=== PATIENT | male | born 1960 | race African-American/Black ===

== ENCOUNTER 2020-04-17 07:15 | Observation (INO) ==
[2020-04-17 08:17] LABS: Basophils % 0.4 % (0.0-0.8); Eosinophils # 0.1 10*3/uL (0.0-0.87); Eosinophils % 1.1 % (0.00-10.9); Hemoglobin 11.6 GM/DL (14.0-18.0); Immature Granulocytes % 0.2 %; Immature Granulocytes Absolute 0.01 #; Lymphocytes # 1.8 10*3/uL (1.4-4.0); Lymphocytes % 38.1 % (21.2-54.2); Mean Corpuscular HGB Conc 30.5 GM/DL (32-36); Mean Corpuscular Volume 96.7 FL (87-102); Mean Platelet Volume 10.5 FL (9.6-12.0); Monocytes % 14.5 % (1.7-12.7); Neutrophils % 45.7 % (38.7-73.9); Platelet Count 202 T/CUMM (130-400); Red Blood Count 3.93 MC/CUMM (3.8-5.5); Red Cell Distribution Width 16.3 % (9.3-17.3); White Blood Count 4.6 T/CUMM (4-12)
[2020-04-17 08:40] LABS: Alanine Aminotransferase 17 U/L (16-61); Albumin 3.1 G/DL (3.4-5.0); Alkaline Phosphatase 51 U/L (45-117); Aspartate Amino Transferase 20 U/L (0-37); Bilirubin,Total < 0.39 MG/DL (0.2-1.0); Blood Urea Nitrogen 28 MG/DL (7-18); Calcium 10.2 MG/DL (8.5-10.1); Carbon Dioxide 33 MMOL/L (21-32); Estimated Glom Filtration Rate 10 ML/MIN; Glucose 109 MG/DL (74-106); Osmolality,Calculated 281.7 MOS/KG (273-304); Potassium 4.2 MMOL/L (3.5-5.1); Sodium 138 MMOL/L (136-145); Total Protein 6.5 G/DL (6.4-8.3)
[2020-04-17 12:03] LABS: INR 1.2; PT Patient Result 12.4 SECS (9.8-11.9); Partial Thromboplastin Time 28.7 SECS (23.9-33.8)
[2020-04-17] MEDS ORDERED: ACETAMINOPHEN 325 MG TABLET PO PRN (14:53)
[2020-04-17] MEDS ORDERED: ONDANSETRON 4 MG/2 ML VIAL IV PRN (14:53)
[2020-04-17] MEDS ORDERED: DEXTROSE 50% 25 GM/50 ML VIAL IV PRN (14:53)
[2020-04-17] MEDS ORDERED: GLUCAGON 1 MG VIAL IM PRN (14:53)
[2020-04-17] MEDS: INSULIN LISPRO 100 UNIT/ML SUBCUT SCH ×2 (17:27→22:30)
[2020-04-17] MEDS ORDERED: NITROGLYCERIN SL 0.4 MG TABLET SL PRN (18:53)
[2020-04-17] MEDS ORDERED: hydrALAZINE 20 MG/1 ML VIAL IV ONE (18:55)
[2020-04-17] MEDS: DOCUSATE SODIUM 100 MG CAPSULE PO SCH (21:25)
[2020-04-17] MEDS: METOPROLOL TARTRATE 25 MG TABLET PO SCH (21:27)
[2020-04-17] MEDS: ROSUVASTATIN 10 MG TABLET PO SCH (21:27)
[2020-04-17] MEDS: SACUBITRIL/VALSARTAN 49-51 MG TABLET PO SCH (22:37)
[2020-04-18 06:43] LABS: Basophils % 0.4 % (0.0-0.8); Eosinophils # 0.1 10*3/uL (0.0-0.87); Eosinophils % 1.5 % (0.00-10.9); Hematocrit 37.5 VOL% (42.0-52.0); Hemoglobin 11.9 GM/DL (14.0-18.0); Immature Granulocytes % 0.2 %; Immature Granulocytes Absolute 0.01 #; Lymphocytes # 1.7 10*3/uL (1.4-4.0); Lymphocytes % 36.5 % (21.2-54.2); Mean Corpuscular HGB Conc 31.7 GM/DL (32-36); Mean Corpuscular Volume 93.8 FL (87-102); Mean Platelet Volume 10.8 FL (9.6-12.0); Monocytes % 11.6 % (1.7-12.7); Neutrophils % 49.8 % (38.7-73.9); Platelet Count 173 T/CUMM (130-400); Red Cell Distribution Width 16.1 % (9.3-17.3); White Blood Count 4.6 T/CUMM (4-12)
[2020-04-18] MEDS: LEVOTHYROXINE 125 MCG TABLET PO SCH (06:58)
[2020-04-18 07:03] LABS: Albumin 3.1 G/DL (3.4-5.0); Bilirubin,Total 1.2 MG/DL (0.2-1.0); Calcium 9.4 MG/DL (8.5-10.1); Potassium 3.9 MMOL/L (3.5-5.1); Risk Ratio 4.1; Thyroid Stimulating Hormone 1.76 uIU/ml (0.358-3.74); Total Protein 6.4 G/DL (6.4-8.3); VLDL CHOLESTEROL 24.2 MG/DL
[2020-04-18 08:08] LABS: Hepatitis B Core IgM Quant 0.12 Index; Hepatitis B Surface Ag Quant < 0.10 Index; Hepatitis B Surface Ag Result Non-Reactive (NonReactive); Hepatitis C Virus Ab Quant 0.07 Index; Hepatitis C Virus Ab Result Non-Reactive (NonReactive)
[2020-04-18] MEDS ORDERED: LIDOCAINE/PRILOCAINE CREAM 5 GM TUBE TOP SCH (09:00)
[2020-04-18] MEDS: INSULIN LISPRO 100 UNIT/ML SUBCUT SCH ×4 (09:22→22:11)
[2020-04-18] MEDS: SACUBITRIL/VALSARTAN 49-51 MG TABLET PO SCH ×2 (09:45→21:11)
[2020-04-18] MEDS: PANTOPRAZOLE 40 MG TABLET PO SCH (09:45)
[2020-04-18] MEDS: ASPIRIN CHEW 81 MG TABLET PO SCH (09:45)
[2020-04-18] MEDS: FENOFIBRATE 160 MG TABLET PO SCH (09:46)
[2020-04-18] MEDS: amLODIPine 5 MG TABLET PO SCH (09:47)
[2020-04-18] MEDS: CALCIUM ACETATE 667 MG CAPSULE PO SCH ×3 (09:47→17:31)
[2020-04-18] MEDS: DOCUSATE SODIUM 100 MG CAPSULE PO SCH ×2 (10:04→21:11)
[2020-04-18] MEDS: METOPROLOL TARTRATE 25 MG TABLET PO SCH ×2 (10:11→21:12)
[2020-04-18] MEDS: ROSUVASTATIN 10 MG TABLET PO SCH (21:12)
[2020-04-19] MEDS: LEVOTHYROXINE 125 MCG TABLET PO SCH (06:00)
[2020-04-19 07:16] LABS: Basophils % 0.5 % (0.0-0.8); Eosinophils # 0.1 10*3/uL (0.0-0.87); Eosinophils % 2.3 % (0.00-10.9); Hematocrit 37.4 VOL% (42.0-52.0); Immature Granulocytes % 0.5 %; Immature Granulocytes Absolute 0.02 #; Lymphocytes # 1.9 10*3/uL (1.4-4.0); Lymphocytes % 43.9 % (21.2-54.2); Mean Corpuscular HGB Conc 32.1 GM/DL (32-36); Mean Corpuscular Volume 93.5 FL (87-102); Mean Platelet Volume 10.7 FL (9.6-12.0); Monocytes % 14.9 % (1.7-12.7); Neutrophils % 37.9 % (38.7-73.9); Platelet Count 152 T/CUMM (130-400); Red Cell Distribution Width 16.1 % (9.3-17.3); White Blood Count 4.4 T/CUMM (4-12)
[2020-04-19 07:41] LABS: Calcium 8.5 MG/DL (8.5-10.1); Osmolality,Calculated 280.8 MOS/KG (273-304); Thyroid Stimulating Hormone 1.57 uIU/ml (0.358-3.74)
[2020-04-19] MEDS: METOPROLOL TARTRATE 25 MG TABLET PO SCH (09:25)
[2020-04-19] MEDS: CALCIUM ACETATE 667 MG CAPSULE PO SCH (09:25)
[2020-04-19] MEDS: DOCUSATE SODIUM 100 MG CAPSULE PO SCH (09:26)
[2020-04-19] MEDS: FENOFIBRATE 160 MG TABLET PO SCH (09:26)
[2020-04-19] MEDS: SACUBITRIL/VALSARTAN 49-51 MG TABLET PO SCH (09:26)
[2020-04-19] MEDS: INSULIN LISPRO 100 UNIT/ML SUBCUT SCH (09:26)
[2020-04-19] MEDS: amLODIPine 5 MG TABLET PO SCH (09:26)
[2020-04-19] MEDS: PANTOPRAZOLE 40 MG TABLET PO SCH (09:26)
[2020-04-19] MEDS: ASPIRIN CHEW 81 MG TABLET PO SCH (09:26)
[2020-04-19 10:12] LABS: Band Neutrophils 4 % (0-10); Eosinophils 2 % (0-10); Lymphocytes 43 % (20-55); Segmented Neutrophils 38 % (50-85); Total Cells Counted 100
[2020-04-19 10:13] LABS: Hypochromasia 2+; Platelet Estimate Normal
[2020-04-19 11:42] VITALS: BP 136/81
== END 2020-04-19 11:29 | disposition home or self-care (01) ==
LOC: N.EDINP 07:15 → N.ED 07:15 → N.TELEN 13:58
PROVIDERS: ADMIT Family Medicine; ATTEND Family Medicine

== ENCOUNTER 2021-01-27 08:25 | Observation (INO) ==
[2021-01-27 14:56] LABS: Basophils # 0.1 10*3/uL (0.0-0.2); Basophils % 0.9 % (0.0-0.8); Eosinophils # 0.1 10*3/uL (0.0-0.87); Eosinophils % 1.2 % (0.00-10.9); Hemoglobin 11.3 GM/DL (14.0-18.0); Immature Granulocytes % 0.7 %; Immature Granulocytes Absolute 0.04 #; Lymphocytes % 34.5 % (21.2-54.2); Mean Corpuscular HGB Conc 31.4 GM/DL (32-36); Mean Corpuscular Volume 84.5 FL (87-102); Mean Platelet Volume 10.7 FL (9.6-12.0); Monocytes % 11.6 % (1.7-12.7); NRBC # 0.02 10*3/uL; Neutrophils % 51.1 % (38.7-73.9); Platelet Count 237 T/CUMM (130-400); Red Blood Count 4.26 MC/CUMM (3.8-5.5); Red Cell Distribution Width 15.8 % (9.3-17.3); White Blood Count 5.8 T/CUMM (4-12)
[2021-01-27] MEDS ORDERED: SODIUM CHLORIDE 0.9% 1,000 ML IV SCH (15:00)
[2021-01-27 15:26] LABS: Alanine Aminotransferase 20 U/L (16-61); Albumin 3.9 G/DL (3.4-5.0); Alkaline Phosphatase 48 U/L (45-117); Aspartate Amino Transferase 23 U/L (0-37); Bilirubin,Total < 0.39 MG/DL (0.20-1.00); Blood Urea Nitrogen 69 MG/DL (7-18); Calcium 9.4 MG/DL (8.5-10.1); Carbon Dioxide 27 MMOL/L (21-32); Estimated Glom Filtration Rate 6 ML/MIN; Glucose 92 MG/DL (74-106); Osmolality,Calculated 289.1 MOS/KG (273-304); Potassium 4.9 MMOL/L (3.5-5.1); Sodium 135 MMOL/L (136-145); Total Protein 8.3 G/DL (6.4-8.2)
[2021-01-27] MEDS ORDERED: ACETAMINOPHEN 325 MG TABLET PO PRN (23:54)
[2021-01-27] MEDS ORDERED: DEXTROSE 50% 25 GM/50 ML SYRINGE IV PRN (23:54)
[2021-01-27] MEDS ORDERED: ONDANSETRON 4 MG/2 ML VIAL IV PRN (23:54)
[2021-01-27] MEDS ORDERED: GLUCAGON 1 MG VIAL IM PRN (23:54)
[2021-01-28] MEDS: DOCUSATE SODIUM 100 MG CAPSULE PO SCH ×3 (00:42→20:31)
[2021-01-28] MEDS: INSULIN LISPRO 100 UNIT/ML SUBCUT SCH ×5 (00:42→20:30)
[2021-01-28] MEDS ORDERED: NITROGLYCERIN SL 0.4 MG TABLET SL PRN (08:32)
[2021-01-28] MEDS: ROSUVASTATIN 10 MG TABLET PO SCH (10:03)
[2021-01-28] MEDS: SACUBITRIL/VALSARTAN 49-51 MG TABLET PO SCH ×2 (10:03→20:31)
[2021-01-28] MEDS: CALCIUM ACETATE 667 MG CAPSULE PO SCH ×2 (10:03→18:00)
[2021-01-28] MEDS: METOPROLOL SUCCINATE XL 100 MG TABLET PO SCH ×2 (10:03→20:31)
[2021-01-28] MEDS: PANTOPRAZOLE 40 MG TABLET PO SCH (10:03)
[2021-01-28] MEDS: amLODIPine 10 MG TABLET PO SCH (10:03)
[2021-01-28] MEDS: ASPIRIN EC 81 MG TABLET PO SCH (10:03)
[2021-01-28] MEDS: FENOFIBRATE 160 MG TABLET PO SCH (10:08)
[2021-01-29] MEDS: LEVOTHYROXINE 125 MCG TABLET PO SCH (05:31)
[2021-01-29 05:44] LABS: Basophils % 0.6 % (0.0-0.8); Eosinophils # 0.1 10*3/uL (0.0-0.87); Eosinophils % 2.3 % (0.00-10.9); Hemoglobin 10.9 GM/DL (14.0-18.0); Immature Granulocytes % 0.6 %; Immature Granulocytes Absolute 0.03 #; Lymphocytes # 1.7 10*3/uL (1.4-4.0); Lymphocytes % 33.7 % (21.2-54.2); Mean Corpuscular HGB Conc 32.1 GM/DL (32-36); Mean Corpuscular Volume 85.2 FL (87-102); Mean Platelet Volume 10.6 FL (9.6-12.0); Monocytes % 16.5 % (1.7-12.7); Neutrophils % 46.3 % (38.7-73.9); Platelet Count 227 T/CUMM (130-400); Red Blood Count 3.99 MC/CUMM (3.8-5.5); Red Cell Distribution Width 15.5 % (9.3-17.3); White Blood Count 5.2 T/CUMM (4-12)
[2021-01-29 06:06] LABS: Alanine Aminotransferase 12 U/L (16-61); Albumin 2.9 G/DL (3.4-5.0); Alkaline Phosphatase 55 U/L (45-117); Aspartate Amino Transferase 16 U/L (0-37); Bilirubin,Total < 0.39 MG/DL (0.20-1.00); Blood Urea Nitrogen 45 MG/DL (7-18); Calcium 8.3 MG/DL (8.5-10.1); Carbon Dioxide 21 MMOL/L (21-32); Estimated Glom Filtration Rate 9 ML/MIN; Glucose 104 MG/DL (74-106); Osmolality,Calculated 279.2 MOS/KG (273-304); Potassium 4.2 MMOL/L (3.5-5.1); Sodium 134 MMOL/L (136-145); Total Protein 6.5 G/DL (6.4-8.2)
[2021-01-29 06:11] LABS: Eosinophils 1 % (0-10); Hypochromasia Slight; Lymphocytes 39 % (20-55); Microcytosis Slight; Platelet Estimate Adequate; Segmented Neutrophils 48 % (50-85); Total Cells Counted 100
[2021-01-29] MEDS: INSULIN LISPRO 100 UNIT/ML SUBCUT SCH ×4 (09:17→21:39)
[2021-01-29] MEDS: DOCUSATE SODIUM 100 MG CAPSULE PO SCH ×2 (10:28→21:38)
[2021-01-29] MEDS: ROSUVASTATIN 10 MG TABLET PO SCH (10:28)
[2021-01-29] MEDS: PANTOPRAZOLE 40 MG TABLET PO SCH (10:29)
[2021-01-29] MEDS: ASPIRIN EC 81 MG TABLET PO SCH (10:29)
[2021-01-29] MEDS: amLODIPine 10 MG TABLET PO SCH (10:30)
[2021-01-29] MEDS: METOPROLOL SUCCINATE XL 100 MG TABLET PO SCH ×2 (10:30→21:38)
[2021-01-29] MEDS: SACUBITRIL/VALSARTAN 49-51 MG TABLET PO SCH ×2 (10:31→21:38)
[2021-01-29] MEDS: FENOFIBRATE 160 MG TABLET PO SCH (11:17)
[2021-01-29] MEDS: CALCIUM ACETATE 667 MG CAPSULE PO SCH ×3 (11:17→16:33)
[2021-01-30] MEDS: LEVOTHYROXINE 125 MCG TABLET PO SCH (05:49)
[2021-01-30 06:31] LABS: Basophils % 0.8 % (0.0-0.8); Eosinophils # 0.1 10*3/uL (0.0-0.87); Eosinophils % 2.9 % (0.00-10.9); Hematocrit 34.3 VOL% (42.0-52.0); Hemoglobin 11.1 GM/DL (14.0-18.0); Immature Granulocytes % 0.2 %; Immature Granulocytes Absolute 0.01 #; Lymphocytes # 1.9 10*3/uL (1.4-4.0); Lymphocytes % 37.8 % (21.2-54.2); Mean Corpuscular HGB Conc 32.4 GM/DL (32-36); Mean Corpuscular Volume 83.1 FL (87-102); Mean Platelet Volume 10.5 FL (9.6-12.0); Monocytes % 17.4 % (1.7-12.7); Neutrophils % 40.9 % (38.7-73.9); Platelet Count 234 T/CUMM (130-400); Red Blood Count 4.13 MC/CUMM (3.8-5.5); Red Cell Distribution Width 15.8 % (9.3-17.3); White Blood Count 4.9 T/CUMM (4-12)
[2021-01-30 06:54] LABS: Eosinophils 6 % (0-10); Hypochromasia Slight; Lymphocytes 42 % (20-55); Microcytosis Slight; Platelet Estimate Adequate; Segmented Neutrophils 38 % (50-85); Total Cells Counted 100
[2021-01-30] MEDS: DOCUSATE SODIUM 100 MG CAPSULE PO SCH (08:09)
[2021-01-30] MEDS: CALCIUM ACETATE 667 MG CAPSULE PO SCH ×2 (08:09→12:15)
[2021-01-30] MEDS: ASPIRIN EC 81 MG TABLET PO SCH (08:10)
[2021-01-30] MEDS: PANTOPRAZOLE 40 MG TABLET PO SCH (08:10)
[2021-01-30] MEDS: METOPROLOL SUCCINATE XL 100 MG TABLET PO SCH (08:10)
[2021-01-30] MEDS: ROSUVASTATIN 10 MG TABLET PO SCH (08:10)
[2021-01-30] MEDS: amLODIPine 10 MG TABLET PO SCH (08:10)
[2021-01-30 09:17] VITALS: BP 106/65
[2021-01-30] MEDS: SACUBITRIL/VALSARTAN 49-51 MG TABLET PO SCH (10:24)
[2021-01-30] MEDS: INSULIN LISPRO 100 UNIT/ML SUBCUT SCH ×2 (10:24→12:09)
[2021-01-30] MEDS: FENOFIBRATE 160 MG TABLET PO SCH (10:25)
== END 2021-01-30 15:50 | disposition home or self-care (01) ==
LOC: N.ED 08:25 → N.EDINP 08:25 → N.2E 23:15
PROVIDERS: ADMIT Family Medicine; ATTEND Family Medicine

== ENCOUNTER 2021-08-18 16:40 | Inpatient (IN) ==
[2021-08-18 18:43] LABS: Basophils % 0.2 % (0.0-0.8); Eosinophils % 0.2 % (0.00-10.9); Hematocrit 23.9 VOL% (42.0-52.0); Hemoglobin 7.8 GM/DL (14.0-18.0); Immature Granulocytes % 0.4 %; Immature Granulocytes Absolute 0.02 #; Lymphocytes # 0.4 10*3/uL (1.4-4.0); Lymphocytes % 7.9 % (21.2-54.2); Mean Corpuscular HGB Conc 32.6 GM/DL (32-36); Mean Corpuscular Volume 83.6 FL (87-102); Mean Platelet Volume 9.6 FL (9.6-12.0); Monocytes # 0.3 10*3/uL (0.11-0.8); Monocytes % 6.6 % (1.7-12.7); Neutrophils % 84.7 % (38.7-73.9); Platelet Count 137 T/CUMM (130-400); Red Blood Count 2.86 MC/CUMM (3.8-5.5); White Blood Count 4.5 T/CUMM (4-12)
[2021-08-18 18:51] LABS: Albumin 3.1 G/DL (3.4-5.0); Bilirubin,Total 0.4 MG/DL (0.20-1.00); Calcium 8.2 MG/DL (8.5-10.1); Osmolality,Calculated 298.5 MOS/KG (273-304); Potassium 3.7 MMOL/L (3.5-5.1); Total Protein 6.4 G/DL (6.4-8.2)
[2021-08-18] MEDS ORDERED: ONDANSETRON 4 MG/2 ML VIAL IV PRN (20:52)
[2021-08-18] MEDS ORDERED: ACETAMINOPHEN 325 MG TABLET PO PRN (20:52)
[2021-08-18] MEDS ORDERED: NITROGLYCERIN SL 0.4 MG TABLET SL PRN (20:52)
[2021-08-18] MEDS ORDERED: GLUCAGON 1 MG VIAL IM PRN (20:52)
[2021-08-18] MEDS ORDERED: MORPHINE 2 MG/1 ML SYRINGE IV PRN (20:52)
[2021-08-18] MEDS ORDERED: INSULIN NPH/REGULAR 70/30 100 UNIT/ML SUBCUT SCH (21:00)
[2021-08-18] MEDS ORDERED: DEXTROSE 10% 250 ML BAG IV PRN (21:01)
[2021-08-18] MEDS: METOPROLOL SUCCINATE XL 100 MG TABLET PO SCH (22:10)
[2021-08-18] MEDS: ROSUVASTATIN 10 MG TABLET PO SCH (22:10)
[2021-08-18] MEDS: DOCUSATE SODIUM 100 MG CAPSULE PO SCH (22:10)
[2021-08-18] MEDS: SODIUM CHLORIDE 0.9% 1,000 ML IV SCH (22:20)
[2021-08-19] MEDS: minoxidiL 2.5 MG TABLET PO SCH ×3 (00:39→21:48)
[2021-08-19] MEDS: INSULIN REGULAR 100 UNIT/ML SUBCUT SCH ×4 (00:51→17:45)
[2021-08-19 08:28] LABS: Alanine Aminotransferase 19 U/L (16-61); Albumin 2.7 G/DL (3.4-5.0); Alkaline Phosphatase 32 U/L (45-117); Aspartate Amino Transferase 18 U/L (0-37); Bilirubin,Total < 0.39 MG/DL (0.20-1.00); Blood Urea Nitrogen 86 MG/DL (7-18); Calcium 7.6 MG/DL (8.5-10.1); Carbon Dioxide 33 MMOL/L (21-32); Chloride 97 MMOL/L (98-107); Glucose 88 MG/DL (74-106); Osmolality,Calculated 303.4 MOS/KG (273-304); Potassium 4.2 MMOL/L (3.5-5.1); Sodium 140 MMOL/L (136-145); Total Protein 5.5 G/DL (6.4-8.2)
[2021-08-19] MEDS: CALCIUM ACETATE 667 MG CAPSULE PO SCH ×3 (08:31→16:55)
[2021-08-19] MEDS: METOPROLOL SUCCINATE XL 100 MG TABLET PO SCH ×2 (08:31→21:48)
[2021-08-19] MEDS: amLODIPine 5 MG TABLET PO SCH (08:31)
[2021-08-19] MEDS: DOCUSATE SODIUM 100 MG CAPSULE PO SCH ×2 (08:31→21:48)
[2021-08-19 08:55] LABS: Basophils % 0.3 % (0.0-0.8); Eosinophils # 0.1 10*3/uL (0.0-0.87); Eosinophils % 2.3 % (0.00-10.9); Immature Granulocytes % 0.5 %; Immature Granulocytes Absolute 0.02 #; Lymphocytes # 1.2 10*3/uL (1.4-4.0); Lymphocytes % 31.9 % (21.2-54.2); Mean Corpuscular HGB Conc 31.8 GM/DL (32-36); Mean Corpuscular Volume 83.9 FL (87-102); Mean Platelet Volume 10.4 FL (9.6-12.0); Monocytes # 0.5 10*3/uL (0.11-0.8); Platelet Count 159 T/CUMM (130-400); Red Cell Distribution Width 15.9 % (9.3-17.3); White Blood Count 3.9 T/CUMM (4-12)
[2021-08-19 09:00] LABS: Hematocrit 15.1 VOL% (42.0-52.0); Hemoglobin 4.8 GM/DL (14.0-18.0)
[2021-08-19] MEDS ORDERED: PANTOPRAZOLE 40 MG VIAL IV SCH (09:00)
[2021-08-19] MEDS: INSULIN NPH/REGULAR 70/30 100 UNIT/ML SUBCUT SCH ×2 (09:02→17:45)
[2021-08-19] MEDS ORDERED: SODIUM CHLORIDE 0.9% 1,000 ML IV PRN (09:02)
[2021-08-19 10:10] LABS: Hematocrit 13.6 VOL% (42.0-52.0); Hemoglobin 4.4 GM/DL (14.0-18.0)
[2021-08-19 18:18] LABS: Hemoglobin 6.5 GM/DL (14.0-18.0)
[2021-08-19] MEDS: ROSUVASTATIN 10 MG TABLET PO SCH (21:50)
[2021-08-19] MEDS: PANTOPRAZOLE 40 MG VIAL IV SCH (21:55)
[2021-08-20 01:03] LABS: Basophils % 0.5 % (0.0-0.8); Eosinophils # 0.1 10*3/uL (0.0-0.87); Eosinophils % 2.6 % (0.00-10.9); Hematocrit 18.1 VOL% (42.0-52.0); Immature Granulocytes % 0.5 %; Immature Granulocytes Absolute 0.02 #; Lymphocytes # 1.5 10*3/uL (1.4-4.0); Lymphocytes % 35.1 % (21.2-54.2); Mean Corpuscular HGB Conc 33.1 GM/DL (32-36); Mean Corpuscular Volume 86.6 FL (87-102); Mean Platelet Volume 10.3 FL (9.6-12.0); Monocytes # 0.5 10*3/uL (0.11-0.8); Monocytes % 12.9 % (1.7-12.7); Neutrophils % 48.4 % (38.7-73.9); Platelet Count 120 T/CUMM (130-400); Red Blood Count 2.09 MC/CUMM (3.8-5.5); Red Cell Distribution Width 15.5 % (9.3-17.3); White Blood Count 4.2 T/CUMM (4-12)
[2021-08-20] MEDS ORDERED: SODIUM CHLORIDE 0.9% 1,000 ML IV PRN (01:12)
[2021-08-20 01:19] LABS: Calcium 7.6 MG/DL (8.5-10.1); Osmolality,Calculated 310.3 MOS/KG (273-304); Potassium 4.3 MMOL/L (3.5-5.1)
[2021-08-20] MEDS: INSULIN REGULAR 100 UNIT/ML SUBCUT SCH ×4 (04:50→18:26)
[2021-08-20] MEDS ORDERED: SODIUM CHLORIDE 0.9% 1,000 ML IV SCH (08:00)
[2021-08-20] MEDS: CALCIUM ACETATE 667 MG CAPSULE PO SCH ×3 (10:41→17:31)
[2021-08-20] MEDS: DOCUSATE SODIUM 100 MG CAPSULE PO SCH ×2 (10:54→21:53)
[2021-08-20] MEDS: PANTOPRAZOLE 40 MG VIAL IV SCH ×2 (10:55→21:53)
[2021-08-20] MEDS: METOPROLOL SUCCINATE XL 100 MG TABLET PO SCH ×2 (10:55→21:53)
[2021-08-20] MEDS: minoxidiL 2.5 MG TABLET PO SCH ×2 (10:55→21:53)
[2021-08-20] MEDS: INSULIN NPH/REGULAR 70/30 100 UNIT/ML SUBCUT SCH ×2 (10:55→17:35)
[2021-08-20] MEDS: amLODIPine 5 MG TABLET PO SCH (10:55)
[2021-08-20] MEDS ORDERED: ETOMIDATE 20 MG/10 ML VIAL IV ONE (12:12)
[2021-08-20] MEDS ORDERED: propofoL 200 MG/20 ML VIAL IV ONE (12:12)
[2021-08-20] MEDS ORDERED: LIDOCAINE 2% 5 ML VIAL ONE (12:12)
[2021-08-20] MEDS ORDERED: DEXTROSE 50% 25 GM/50 ML VIAL IV PRN (13:07)
[2021-08-20 14:48] LABS: Hematocrit 25.3 VOL% (42.0-52.0); Hemoglobin 8.4 GM/DL (14.0-18.0)
[2021-08-20 14:55] LABS: Hematocrit 25.3 VOL% (42.0-52.0); Hemoglobin 8.5 GM/DL (14.0-18.0)
[2021-08-20] MEDS: ROSUVASTATIN 10 MG TABLET PO SCH (21:53)
[2021-08-21] MEDS: INSULIN REGULAR 100 UNIT/ML SUBCUT SCH ×3 (06:00→17:31)
[2021-08-21 06:12] LABS: Basophils % 0.5 % (0.0-0.8); Eosinophils # 0.1 10*3/uL (0.0-0.87); Eosinophils % 2.8 % (0.00-10.9); Hematocrit 26.2 VOL% (42.0-52.0); Hemoglobin 8.6 GM/DL (14.0-18.0); Immature Granulocytes % 0.2 %; Immature Granulocytes Absolute 0.01 #; Lymphocytes # 1.2 10*3/uL (1.4-4.0); Lymphocytes % 27.6 % (21.2-54.2); Mean Corpuscular HGB Conc 32.8 GM/DL (32-36); Mean Corpuscular Volume 85.6 FL (87-102); Mean Platelet Volume 10.7 FL (9.6-12.0); Monocytes # 0.5 10*3/uL (0.11-0.8); Monocytes % 12.2 % (1.7-12.7); Neutrophils % 56.7 % (38.7-73.9); Platelet Count 138 T/CUMM (130-400); Red Blood Count 3.06 MC/CUMM (3.8-5.5); Red Cell Distribution Width 16.4 % (9.3-17.3); White Blood Count 4.3 T/CUMM (4-12)
[2021-08-21 06:29] LABS: Calcium 8.1 MG/DL (8.5-10.1); Osmolality,Calculated 291.7 MOS/KG (273-304); Potassium 4.4 MMOL/L (3.5-5.1)
[2021-08-21] MEDS: DOCUSATE SODIUM 100 MG CAPSULE PO SCH ×2 (08:57→22:19)
[2021-08-21] MEDS: amLODIPine 5 MG TABLET PO SCH (08:58)
[2021-08-21] MEDS: INSULIN NPH/REGULAR 70/30 100 UNIT/ML SUBCUT SCH ×2 (09:00→17:28)
[2021-08-21] MEDS: minoxidiL 2.5 MG TABLET PO SCH ×2 (09:01→22:19)
[2021-08-21] MEDS: PANTOPRAZOLE 40 MG VIAL IV SCH ×2 (09:01→22:19)
[2021-08-21] MEDS: CALCIUM ACETATE 667 MG CAPSULE PO SCH ×3 (09:02→17:11)
[2021-08-21] MEDS: METOPROLOL SUCCINATE XL 100 MG TABLET PO SCH ×2 (09:04→22:19)
[2021-08-21] MEDS: SODIUM CHLORIDE 0.9% 1,000 ML IV SCH ×2 (22:18→22:19)
[2021-08-21] MEDS: ROSUVASTATIN 10 MG TABLET PO SCH (22:19)
[2021-08-22 05:53] LABS: Basophils % 0.6 % (0.0-0.8); Eosinophils # 0.2 10*3/uL (0.0-0.87); Eosinophils % 3.4 % (0.00-10.9); Hematocrit 28.4 VOL% (42.0-52.0); Hemoglobin 9.2 GM/DL (14.0-18.0); Immature Granulocytes % 0.4 %; Immature Granulocytes Absolute 0.02 #; Lymphocytes # 1.2 10*3/uL (1.4-4.0); Lymphocytes % 24.5 % (21.2-54.2); Mean Corpuscular HGB Conc 32.4 GM/DL (32-36); Mean Corpuscular Volume 85.3 FL (87-102); Mean Platelet Volume 10.7 FL (9.6-12.0); Monocytes # 0.7 10*3/uL (0.11-0.8); Monocytes % 14.2 % (1.7-12.7); Neutrophils % 56.9 % (38.7-73.9); Platelet Count 174 T/CUMM (130-400); Red Blood Count 3.33 MC/CUMM (3.8-5.5); Red Cell Distribution Width 15.9 % (9.3-17.3); White Blood Count 5.1 T/CUMM (4-12)
[2021-08-22 06:12] LABS: Calcium 8.2 MG/DL (8.5-10.1); Osmolality,Calculated 287.5 MOS/KG (273-304); Potassium 4.3 MMOL/L (3.5-5.1)
[2021-08-22] MEDS ORDERED: INSULIN REGULAR 100 UNIT/ML SUBCUT SCH (07:30)
[2021-08-22 08:03] VITALS: BP 111/69
[2021-08-22] MEDS ORDERED: PANTOPRAZOLE 40 MG TABLET PO SCH (09:00)
[2021-08-22] MEDS: METOPROLOL SUCCINATE XL 100 MG TABLET PO SCH (10:32)
[2021-08-22] MEDS: amLODIPine 5 MG TABLET PO SCH (10:33)
[2021-08-22] MEDS: DOCUSATE SODIUM 100 MG CAPSULE PO SCH (10:33)
[2021-08-22] MEDS: minoxidiL 2.5 MG TABLET PO SCH (10:36)
[2021-08-22] MEDS: CALCIUM ACETATE 667 MG CAPSULE PO SCH (10:37)
[2021-08-22] MEDS: INSULIN NPH/REGULAR 70/30 100 UNIT/ML SUBCUT SCH (10:40)
[2021-08-22] MEDS: PANTOPRAZOLE 40 MG VIAL IV SCH (10:42)
== END 2021-08-22 11:32 | disposition home or self-care (01) | DRG 377 ==
LOC: N.EDINP 16:40 → N.ED 16:40 → N.5E 20:51
PROVIDERS: ADMIT Family Medicine; ATTEND Family Medicine